=== PATIENT | male | born 1990 | race Caucasian/White ===

== ENCOUNTER 2017-09-17 08:10 | Emergency (ER) | payer OTHER, BC ==
[~2017-09-17] VITALS: Ht 180.3 cm; Wt 68.0 kg
[2017-09-17] MEDS ORDERED: NO ROUTINE MEDS (08:22)
[2017-09-17] MEDS ORDERED: CIPR500 PO (08:23)
[2017-09-17] MEDS ORDERED: TENO300 PO (08:39)
[2017-09-17] MEDS ORDERED: RALT400 PO (08:39)
[2017-09-17] MEDS ORDERED: EMTRIVA PO (08:39)
[2017-09-18 08:14] LABS: HCV ANTIBODY 0.2 (0.0-0.9); HEPATITIS B SURF AB QUANT >1000.0 mIU/mL (Immunity>9.9); HIV SCREEN 4TH GENERATION WRFX Non Reactive (Non Reactive)
== END 2017-09-17 09:00 | disposition home or self-care (01) ==
LOC: ER 08:10
DX: Z77.21 Contact with and (suspected) exposure to potentially hazardous body fluids (principal); Z79.2 Long term (current) use of antibiotics
CPT/HCPCS: 36415; 84460; 86317; 86703; 86803; 87340; 87389; 99283

== ENCOUNTER → 2017-11-06 | Outpatient (CLI) | payer OTHER, BC ==
[~2017-11-06] MED LIST: CIPR500 PO; EMTRIVA PO; NO ROUTINE MEDS; RALT400 PO; TENO300 PO
[2017-11-07 06:14] LABS: HIV SCREEN 4TH GENERATION WRFX Non Reactive (Non Reactive)
== END | disposition home or self-care (01) ==
LOC: LAB EV 08:06 → LAB SHORT 08:06
PROVIDERS: Physician Assistant Medical
DX: Z20.9 Contact with and (suspected) exposure to unspecified communicable disease (principal)
CPT/HCPCS: 86803; 87389

== ENCOUNTER → 2018-02-13 | Outpatient (CLI) | payer OTHER, BC ==
[2018-02-14 09:14] LABS: HIV SCREEN 4TH GENERATION WRFX Non Reactive (Non Reactive)
== END ==
LOC: LAB EV 09:36 → LAB SHORT 09:36
PROVIDERS: General Practice
DX: Z20.9 Contact with and (suspected) exposure to unspecified communicable disease (principal)
CPT/HCPCS: 87389

== ENCOUNTER 2021-08-25 22:27 | Emergency (ER) | payer OTHER ==
[~2021-08-25] VITALS: Ht 180.3 cm; Wt 66.7 kg
[2021-08-25 23:15] LABS: Source, Urine Clean Catch
[2021-08-25 23:18] LABS: Bilirubin, Urine Neg (Neg); Blood, Urine Neg (Neg); Glucose Qualitative, Urine Neg (Neg); Ketones, Urine Neg (Neg); Leukocyte Esterase, Urine Neg (Neg); Nitrite, Urine Neg (Neg); Protein, Urine Neg (Neg); Specific Gravity, Urine 1.005 (1.003-1.022); Urobilinogen, Urine NORM (Normal)
[2021-08-25 23:19] LABS: Appearance, Urine Clear (Clear); Color, Urine Yellow (P-Yellow)
== END 2021-08-26 00:08 | disposition home or self-care (01) ==
LOC: ER 22:27
PROVIDERS: Student in an Organized Health Care Education/Training Program
DX: M54.50 Low back pain, unspecified (principal)
CPT/HCPCS: 81003; 87086; 99284